=== PATIENT | female | born 1990 | race Caucasian/White ===

== ENCOUNTER 2016-10-05 17:05 | Emergency (ER) | payer OTHER ==
[~2016-10-05] VITALS: Ht 175.3 cm; Wt 105.1 kg
[2016-10-05 17:08] VITALS: TEMP 36.5; Ht 175.3 cm; Wt 105.1 kg
[2016-10-05] MEDS ORDERED: SODIUM CHLORIDE 0.9% 1000ML 1,000 ML IV STA (17:51)
[2016-10-05] MEDS ORDERED: SODIUM CHLORIDE 0.9% 500ML 500 ML IV STA (17:51)
--- NOTE | 2016-10-05 17:55 | EMERGENCY ROOM VISIT NOTE ---
History Report prepared by Jessica: Maude Vargas Under the Supervision of: Dr. Giana Mantilla M.D. First contact with patient: 17:40 Chief Complaint: ABDOMINAL PAIN Stated Complaint: NAUSEA, PAIN- ABDOMINAL REGION Nursing Triage Summary: Pt states "yesterday at 1500 I got pains in my lower abd. It feels like period cramps. I took aleve and the pain went away but it came back today at 1500. It is making me feel really nausous" Pt reports she is on her menstrual period currently History of Present Illness The patient is a 26 year old female who presents to the Emergency Room with complaints of persistent lower abdominal cramping that began yesterday. She notes that she began her menstrual period yesterday, which was a few days late. She recently finished her first cycle on a new control pill. Yesterday afternoon she developed the abdominal pain, which made her double over in pain. She took some Aleve which gave her significant relief throughout the rest of the day. This morning and through the early afternoon, she was feeling well. She developed the pain again about 3 hours ago, at the same time she had the pain yesterday. Since then she has also had 2 episodes of vomiting, most recently about an hour ago. The patient denies any unusual straining or lifting. She did have a stomach bug a few weeks ago, but her symptoms felt completely different. She denies diarrhea, urinary symptoms, or other complaints. Source of History: patient Onset: yesterday Position: abdomen (lower) Quality: cramping Timing: other (persistent) Associated Symptoms: + vomiting, No diarrhea, No urinary symptoms Review of Systems See HPI for pertinent positives & negatives. A total of 10 systems reviewed and were otherwise negative. Past Medical & Surgical Medical Problems: (1) Acute pancreatitis (2) Celiac disease Family History No pertinent family history stated. Social History Smoking Status: Never Smoker Marital Status: single Occupation Status: employed Current/Historical Medications Scheduled Control Pills ( Control Pills), 1 TAB PO DAILY Thyroid ([place] Thyroid), 45 MG PO DAILY Allergies Coded Allergies: No Known Allergies (Unverified , 10/05/16) Physical Exam Vital Signs Date Time Temp Pulse Resp B/P Pulse Ox O2 Delivery O2 Flow Rate FiO2 10/05/16 19:53 84 16 116/80 100 10/05/16 17:08 36.5 89 18 132/92 97 Room Air Physical Exam Vital signs reviewed. General: Well-appearing 26 year old female, in no significant distress. HEENT: No scleral icterus, PERRLA, neck supple. Atraumatic. Cardiovascular: Regular rate and rhythm, no extra sounds. Pulmonary: Clear to auscultation bilaterally, normal work of breathing. Abdomen: Soft, mild suprapubic abdominal tenderness, nondistended, positive bowel sounds. Musculoskeletal: Atraumatic, no peripheral edema. Neurologic: Patient awake alert and oriented x 3, full strength in all 4 extremities. Cranial nerves 2 through 12 grossly intact. Skin: Warm, dry, no rash Medical Decision & Procedures ER Provider Diagnostic Interpretation: Imaging results as stated below per my review and radiologist interpretation: EXAMINATION: PELVIC ULTRASOUND (transabdominal and endovaginal scanning) CLINICAL HISTORY: Pelvic pain. COMPARISON STUDY: None FINDINGS: The uterus measured 5.9 x 2.9 x 4 cm. The endometrial stripe measured 2 mm. The right ovary measured 31 x 18 x 31 mm. The left ovary measured 28 x 20 x 31 mm. There is no ultrasonographic evidence of ovarian torsion. It should be noted that ovarian torsion can be present with normal Doppler ultrasonographic findings. There is a small amount of free pelvic fluid. IMPRESSION: Small amount of free pelvic fluid. Ultrasonographically normal uterus and ovaries. Electronically signed by: Dago Mackey M.D. 10/05/2016 6:59 PM Dictated Date/Time: 10/05/2016 6:[address] ABD/PELVIS IV CONTRAST ONLY CLINICAL HISTORY: Lower abdominal pain. Elevated white count. Free pelvic fluid. COMPARISON STUDY: Pelvic ultrasound dated 10/05/2016 TECHNIQUE: Following the IV administration of 116 mL of Optiray-320, CT scan of the abdomen and pelvis was performed from the lung bases to the proximal femurs. Images are reviewed in the axial, sagittal, and coronal planes. IV contrast was administered without complication. CT DOSE: 953.40 mGy.cm FINDINGS: Lower chest: There are minor dependent atelectatic changes. Liver: The contrast-enhanced liver is normal in size, contour, and attenuation. There is no intrahepatic biliary ductal dilatation. The hepatic veins and portal veins are patent. Gallbladder: Unremarkable. Spleen: Normal in size and attenuation. Pancreas: Unremarkable. Adrenal glands: Unremarkable. Kidneys: There is symmetric renal cortical enhancement. The kidneys are normal in size without hydronephrosis. Bowel: There are no transition zones indicate bowel obstruction. The appendix appears normal. There is no acute diverticulitis. Peritoneum: There is a small amount of free pelvic fluid. No free air is visualized Vasculature: The abdominal aorta is normal in course and caliber. Adenopathy: None. Pelvic viscera: The bladder, and pelvic viscera are unremarkable. Skeletal structures: No destructive osseous lesions are seen. IMPRESSION: 1. Small amount of free pelvic fluid 2. No evidence of bowel obstruction. No evidence of free air 3. Normal appendix 4. No evidence of diverticulitis. Electronically signed by: Dago Mackey M.D. 10/05/2016 7:36 PM Dictated Date/Time: 10/05/2016 7:33 PM Laboratory Results 10/05/16 17:48 Red Blood Count 5.17, Mean Corpuscular Volume 85.3, Mean Corpuscular Hemoglobin 29.4, Mean Corpuscular Hemoglobin Concent 34.5, Mean Platelet Volume 10.9, Neutrophils (%) (Auto) 88.8, Lymphocytes (%) (Auto) 4.3, Monocytes (%) (Auto) 5.1, Eosinophils (%) (Auto) 1.4, Basophils (%) (Auto) 0.0, Neutrophils # (Auto) 20.47, Lymphocytes # (Auto) 0.99, Monocytes # (Auto) 1.17, Eosinophils # (Auto) 0.32, Basophils # (Auto) 0.01 10/05/16 17:48 Test 10/05/16 00:00 10/05/16 17:48 Urine Color DK YELLOW Urine Appearance CLEAR (CLEAR) Urine pH 6.5 (4.5-7.5) Urine Specific [place] 1.037 (1.000-1.030) Urine Protein NEG (NEG) Urine Glucose (UA) NEG (NEG) Urine Ketones 1+ (NEG) Urine Occult Blood 1+ (NEG) Urine Nitrite NEG (NEG) Urine Bilirubin NEG (NEG) Urine Urobilinogen NEG (NEG) Urine Leukocyte Esterase SMALL (NEG) Urine WBC (Auto) 5-10 /hpf (0-5) Urine RBC (Auto) 0-4 /hpf (0-4) Urine Hyaline Casts (Auto) 5-10 /lpf (0-5) Urine Epithelial Cells (Auto) >30 /lpf (0-5) Urine Bacteria (Auto) 1+ (NEG) Urine Renal Epithelial Cells /lpf (0-5) Urine Mucus PRESENT (NONE PRSENT) White Blood Count 23.05 K/uL (4.8-10.8) Red Blood Count 5.17 M/uL (4.2-5.4) Hemoglobin 15.2 g/dL (12.0-16.0) Hematocrit 44.1 % (37-47) Mean Corpuscular Volume 85.3 fL (80-100) Mean Corpuscular Hemoglobin 29.4 pg (25-34) Mean Corpuscular Hemoglobin Concent 34.5 g/dl (32-36) Platelet Count 374 K/uL (130-400) Mean Platelet Volume 10.9 fL (7.4-10.4) Neutrophils (%) (Auto) 88.8 % Lymphocytes (%) (Auto) 4.3 % Monocytes (%) (Auto) 5.1 % Eosinophils (%) (Auto) 1.4 % Basophils (%) (Auto) 0.0 % Neutrophils # (Auto) 20.47 K/uL (1.4-6.5) Lymphocytes # (Auto) 0.99 K/uL (1.2-3.4) Monocytes # (Auto) 1.17 K/uL (0.11-0.59) Eosinophils # (Auto) 0.32 K/uL (0-0.5) Basophils # (Auto) 0.01 K/uL (0-0.2) RDW Standard Deviation 41.4 fL (36.4-46.3) RDW Coefficient of Variation 13.3 % (11.5-14.5) Immature Granulocyte % (Auto) 0.4 % Immature Granulocyte # (Auto) 0.09 K/uL (0.00-0.02) Anion Gap 8.0 mmol/L (3-11) Est Creatinine Clear Calc Drug Dose 138.6 ml/min Estimated GFR () 119.9 Estimated GFR (Non- 103.5 BUN/Creatinine Ratio 15.5 (10-20) Calcium Level 9.2 mg/dl (8.5-10.1) Magnesium Level 1.9 mg/dl (1.8-2.4) Total Bilirubin 0.3 mg/dl (0.2-1) Direct Bilirubin < 0.1 mg/dl (0-0.2) Aspartate Amino Transf (AST/SGOT) 10 U/L (15-37) Alanine Aminotransferase (ALT/SGPT) 18 U/L (12-78) Alkaline Phosphatase 67 U/L (45-117) Total Protein 8.0 gm/dl (6.4-8.2) Albumin 4.0 gm/dl (3.4-5.0) Human Chorionic Gonadotropin, Qual NEG (NEG) Date/Time Source Procedure Growth Status 10/05/16 00:00 Urine , Clean Catch Urine Culture - Final Enterococcus Faecalis Lactobacillus Species Complete Laboratory results per my review. Medications Administered Medications (Trade) Dose Ordered Sig/Franck Route Start Time Stop Time Status Last Admin Dose Admin Sodium Chloride 500 ml @ 999 mls/hr Q31M STAT IV 10/05/16 17:51 10/05/16 18:21 DC 10/05/16 18:02 999 MLS/HR Sodium Chloride (Nss 1000ml) 1,000 ml @ 125 mls/hr Q8H STAT IV 10/05/16 17:51 10/05/16 20:45 DC 10/05/16 19:10 125 MLS/HR ED Course 1746: The patient was evaluated in room A10. A complete history and physical examination was performed. 1751: Ordered NSS 1000 ml @ 125 mls/hr IV, NSS 500 ml @ 999 mls/hr IV. 2158: Upon reevaluation, the patient was resting comfortably. I discussed findings with the patient. She verbalized agreement of the treatment plan. The patient was discharged home. Medical Decision Differential diagnosis: Etiologies such as appendicitis, diverticulitis, PUD, biliary pathology, UTI, pancreatitis, obstruction, mesenteric ischemia, aortic pathology, infections, inflammatory bowel disease, renal colic, as well as others were entertained. This pt was evaluated and appeared to be in no distress. IV access was obtained and lab work was drawn. Pt was hydrated with NSS, she declined pain medication. US of pelvis was performed and reveals FF in pelvis. Pt WBC is 23. A f/u CT abd/pelvis was performed and is negative for acute abnl. Pt was informed of the findings. Reevaluation reveals a non-acute abdomen. UA is likely contaminate, she denies urinary sx. Pt was asked to f/u closely with PCP and to return to the ED for worsening of symptoms or any medical concerns. Impression Primary Impression: Leukocytosis Additional Impression: Lower abdominal pain Scribe Attestation The scribe's documentation has been prepared under my direction and personally reviewed by me in its entirety. I confirm that the note above accurately reflects all work, treatment, procedures, and medical decision making performed by me. Departure Information Dispostion Home / Self-Care Referrals No Doctor, Assigned (PCP) Patient Instructions My [facility] Additional Instructions Diagnosis: Leukocytosis, lower abdominal pain Ibuprofen 600 mg every 6 hours as needed for pain with food. Drink plenty of clear fluids. Follow-up with your physician this week for reevaluation. Return to the ER for worsening of symptoms, fever or any medical concerns. Problem Qualifiers Primary Impression: Leukocytosis Leukocytosis type: unspecified Qualified Codes: D72.829 - Elevated white blood cell count, unspecified
[2016-10-05 18:17] LABS: HEMATOCRIT 44.1 % (37-47); MEAN CELL VOLUME 85.3 fL (80-100); MEAN CORPUSCULAR HEMOGLOBIN 29.4 pg (25-34); MEAN CORPUSCULAR HGB CONC 34.5 g/dl (32-36); MEAN PLATELET VOLUME 10.9 fL (7.4-10.4); PLATELET COUNT 374 K/uL (130-400); RED BLOOD COUNT 5.17 M/uL (4.2-5.4); WHITE BLOOD COUNT 23.05 K/uL (4.8-10.8)
[2016-10-05 18:22] LABS: URINE APPEARANCE CLEAR (CLEAR); URINE BILIRUBIN NEG (NEG); URINE COLOR DK YELLOW; URINE EPITHELIAL CELL AUTO >30 /lpf (0-5); URINE NITRITE NEG (NEG); URINE PH 6.5 (4.5-7.5); URINE SPECIFIC GRAVITY 1.037 (1.000-1.030); UROBILINOGEN NEG (NEG); ZZUR CULT IF INDIC CLEAN CATCH YES
[2016-10-05 18:30] LABS: MANUAL MICROSCOPIC REQUIRED? NO; REVIEW REQ? YES
[2016-10-05 18:35] LABS: ALT/SGPT 18 U/L (12-78); AST/SGOT 10 U/L (15-37); BLOOD UREA NITROGEN 12 mg/dl (7-18); BUN/CREATININE RATIO 15.5 (10-20); CALCIUM 9.2 mg/dl (8.5-10.1); CARBON DIOXIDE 26 mmol/L (21-32); CHLORIDE 107 mmol/L (98-107); CREATININE 0.78 mg/dl (0.60-1.20); GLUCOSE 100 mg/dl (70-99); MAGNESIUM 1.9 mg/dl (1.8-2.4); POTASSIUM 3.8 mmol/L (3.5-5.1); SODIUM 141 mmol/L (136-145)
[2016-10-05 18:38] LABS: ALKALINE PHOSPHATASE 67 U/L (45-117)
[2016-10-05 18:39] LABS: PREG INTERNAL NEGATIVE QC NEG CLEAR BACKGROUND; PREG INTERNAL POSITIVE QC POS CONTROL LINE
[2016-10-05 18:43] LABS: URINE MUCUS PRESENT (NONE PRSENT)
[2016-10-05 18:45] LABS: BASO ABS # 0.01 K/uL (0-0.2); COMPLETE YES; EOS % 1.4 %; IG% 0.4 %; LYMPH % 4.3 %; LYMPH ABS # 0.99 K/uL (1.2-3.4); MONO % 5.1 %; NEUT % 88.8 %
--- NOTE | 2016-10-05 19:02 | DIAGNOSTIC IMAGING REPORT ---
EXAMINATION: PELVIC ULTRASOUND (transabdominal and endovaginal scanning) CLINICAL HISTORY: Pelvic pain. COMPARISON STUDY: None FINDINGS: The uterus measured 5.9 x 2.9 x 4 cm. The endometrial stripe measured 2 mm. The right ovary measured 31 x 18 x 31 mm. The left ovary measured 28 x 20 x 31 mm. There is no ultrasonographic evidence of ovarian torsion. It should be noted that ovarian torsion can be present with normal Doppler ultrasonographic findings. There is a small amount of free pelvic fluid. IMPRESSION: Small amount of free pelvic fluid. Ultrasonographically normal uterus and ovaries. Electronically signed by: Dago Mackey M.D. 10/05/2016 6:59 PM Dictated Date/Time: 10/05/2016 6:58 PM
[2016-10-05] MEDS ORDERED: OPTIRAY 320 IV PRN (19:15)
[2016-10-05] MEDS ORDERED: NATURAL SUPPLEMENTS PO (19:29)
--- NOTE | 2016-10-05 19:38 | DIAGNOSTIC IMAGING REPORT ---
CT ABD/PELVIS IV CONTRAST ONLY CLINICAL HISTORY: Lower abdominal pain. Elevated white count. Free pelvic fluid. COMPARISON STUDY: Pelvic ultrasound dated 10/05/2016 TECHNIQUE: Following the IV administration of 116 mL of Optiray-320, CT scan of the abdomen and pelvis was performed from the lung bases to the proximal femurs. Images are reviewed in the axial, sagittal, and coronal planes. IV contrast was administered without complication. CT DOSE: 953.40 mGy.cm FINDINGS: Lower chest: There are minor dependent atelectatic changes. Liver: The contrast-enhanced liver is normal in size, contour, and attenuation. There is no intrahepatic biliary ductal dilatation. The hepatic veins and portal veins are patent. Gallbladder: Unremarkable. Spleen: Normal in size and attenuation. Pancreas: Unremarkable. Adrenal glands: Unremarkable. Kidneys: There is symmetric renal cortical enhancement. The kidneys are normal in size without hydronephrosis. Bowel: There are no transition zones indicate bowel obstruction. The appendix appears normal. There is no acute diverticulitis. Peritoneum: There is a small amount of free pelvic fluid. No free air is visualized Vasculature: The abdominal aorta is normal in course and caliber. Adenopathy: None. Pelvic viscera: The bladder, and pelvic viscera are unremarkable. Skeletal structures: No destructive osseous lesions are seen. IMPRESSION: 1. Small amount of free pelvic fluid 2. No evidence of bowel obstruction. No evidence of free air 3. Normal appendix 4. No evidence of diverticulitis. Electronically signed by: Dago Mackey M.D. 10/05/2016 7:36 PM Dictated Date/Time: 10/05/2016 7:33 PM
[2016-10-05 19:53] VITALS: BP 116/80; PULSE 84; O2SAT 100
[2016-10-11] MEDS ORDERED: ONDA4TAB65 PO (10:13)
== END 2016-10-05 20:09 | disposition home or self-care (01) ==
LOC: C.EDB 17:06 → C.EDC 20:09
DX: D72.829 Elevated white blood cell count, unspecified (principal); R10.30 Lower abdominal pain, unspecified; K90.0 Celiac disease; K85.90 Acute pancreatitis without necrosis or infection, unspecified; Z79.3 Long term (current) use of hormonal contraceptives; Z79.899 Other long term (current) drug therapy

== ENCOUNTER 2016-10-08 12:49 | Inpatient (IN) | payer OTHER ==
[~2016-10-08] VITALS: Ht 175.3 cm; Wt 105.8 kg
[~2016-10-08 12:49] MED LIST: NATURAL SUPPLEMENTS PO
[2016-10-08] MEDS ORDERED: KETOROLAC TROMETHAMINE 30 MG/ML VIAL IV STA (13:38)
[2016-10-08] MEDS ORDERED: ONDANSETRON 8 MG/54 ML D5W IV STA (13:38)
[2016-10-08] MEDS ORDERED: SODIUM CHLORIDE 0.9% 1000ML 2,000 ML IV STA (13:38)
--- NOTE | 2016-10-08 13:46 | EMERGENCY ROOM VISIT NOTE ---
History Report prepared by Jessica: Mary Jimenez Under the Supervision of: Dr. Albaro Beach M.D. First contact with patient: 13:33 Chief Complaint: ABDOMINAL PAIN Stated Complaint: ABD PAIN, CRAMPS, VOMITING Nursing Triage Summary: Triage note: Pt reports she was seen in ED on Saturday for possible ovarian cyst. pt reports continued abd pain and nausea. pt reports diarrhea which is on going since saturday. History of Present Illness The patient is a 26 year old female who presents to the Emergency Room with complaints of diffuse intermittent abdominal pain that began . She currently rates her discomfort as a 4/10, but notes that it has been up to an 8/ 10 in severity. The patient states that she was evaluated in the emergency department for central abdominal pain. She states that she was told that she probably had an ovarian cyst that had ruptured. The patient states that her pain has been intermittent since and describes her pain today as a cramping. She states that she has had persistent diarrhea since Saturday and additionally notes intermittent nausea. The patient states that she has been vomiting today. She states that today she has felt bloated and sore in her abdominal area. The patient states that she has been feeling weak and fatigued while at work. She denies any fever, urinary symptoms, or vaginal discharge. The patient states that she did have her menstrual cycle last week. She denies any chance of . The patient denies being around anyone with similar symptoms. Per the notes from the patient's visit on Saturday, the patient[place] blood [place] [id number] scan showed a normal appendix and her ultrasound showed healthy ovaries, but a small amount of free fluid. Her test was negative. Source of History: patient Onset: Position: abdomen (diffuse) Symptom Intensity: 4/10 Quality: cramping, other (sore, bloated) Timing: intermittent Associated Symptoms: + diarrhea, + fatigue, + nausea, + vomiting, + weakness , No fevers, No urinary symptoms Review of Systems See HPI for pertinent positives & negatives. A total of 10 systems reviewed and were otherwise negative. Past Medical & Surgical Medical Problems: (1) Acute pancreatitis (2) Celiac disease Family History No pertinent family history stated. Social History Smoking Status: Never Smoker Marital Status: single Occupation Status: employed Current/Historical Medications Scheduled Control Pills ( Control Pills), 1 TAB PO DAILY Thyroid ([place] Thyroid), 45 MG PO DAILY Allergies Coded Allergies: No Known Allergies (Unverified , 10/05/16) Physical Exam Vital Signs Date Time Temp Pulse Resp B/P Pulse Ox O2 Delivery O2 Flow Rate FiO2 10/08/16 14:48 70 18 116/74 100 Room Air 10/08/16 12:55 36.8 83 18 129/92 97 Room Air Physical Exam GENERAL: Patient is in no acute distress. HEENT: No acute trauma, normocephalic atraumatic, mucous membranes moist, no nasal congestion, no scleral icterus. NECK: No stridor, no adenopathy, no meningismus, trachea is midline. LUNGS: Clear to auscultation bilaterally, no wheeze, no rhonchi, breath sounds equal. HEART: Without murmurs gallops or rubs, regular rate and rhythm. ABDOMEN: Mildly tender in both lower quadrants. Soft, bowel sounds positive, no hernias, no peritonitis. EXTREMITIES: No cyanosis or edema, full range of motion of all the joints without pain or difficulty, no signs for acute trauma. NEUROLOGIC: Oriented x 3, no acute motor or sensory deficits, no focal weakness. SKIN: No rash, no jaundice, no diaphoresis. Medical Decision & Procedures ER Provider Diagnostic Interpretation: X ray results and stated below per my interpretation and radiologist interpretation. Other radiology results and stated below per my review and radiologist interpretation: ABDOMEN 2VIEW W/PA CHEST RTN CLINICAL HISTORY: Dominant pain, nausea, vomiting, diarrhea. COMPARISON STUDY: No previous studies for comparison. FINDINGS: The erect chest reveals no evidence of free air. There is no evidence of focal pulmonary consolidation.] Erect and supine views of the abdomen reveal no abnormally dilated loops of large or small bowel. There are no transition zone to indicate bowel obstruction. IMPRESSION: No evidence of bowel obstruction. No evidence of free air. Electronically signed by: Dago Mackey M.D. 10/08/2016 2:48 PM Dictated Date/Time: 10/08/2016 2:48 PM ABDOMINAL ULTRASOUND, RIGHT UPPER QUADRANT HISTORY: Epigastric pain.. COMPARISON: CT of the abdomen and pelvis October 05, 2016. FINDINGS: Liver morphology is normal. The study is compromised by suboptimal penetration. There is no biliary ductal dilatation and no gallstones are identified. The pancreatic body is normal. The head and tail are obscured. There is no right hydronephrosis. IMPRESSION: 1. No gallstones or biliary ductal dilatation. 2. Study compromised suboptimal penetration. Electronically signed by: Frank Matta M.D. 10/08/2016 3:34 PM Dictated Date/Time: 10/08/2016 3:32 PM Laboratory Results 10/08/16 13:35 Red Blood Count 4.60, Mean Corpuscular Volume 84.8, Mean Corpuscular Hemoglobin 29.1, Mean Corpuscular Hemoglobin Concent 34.4, Mean Platelet Volume 10.5, Neutrophils (%) (Auto) 80.3, Lymphocytes (%) (Auto) 9.9, Monocytes (%) (Auto) 4.5, Eosinophils (%) (Auto) 4.9, Basophils (%) (Auto) 0.2, Neutrophils # (Auto) 10.06, Lymphocytes # (Auto) 1.24, Monocytes # (Auto) 0.57, Eosinophils # (Auto) 0.61, Basophils # (Auto) 0.03 10/08/16 13:35 Test 10/08/16 11:25 10/08/16 13:35 Urine Color YELLOW Urine Appearance CLEAR (CLEAR) Urine pH 6.0 (4.5-7.5) Urine Specific [place] 1.021 (1.000-1.030) Urine Protein NEG (NEG) Urine Glucose (UA) NEG (NEG) Urine Ketones NEG (NEG) Urine Occult Blood NEG (NEG) Urine Nitrite NEG (NEG) Urine Bilirubin NEG (NEG) Urine Urobilinogen NEG (NEG) Urine Leukocyte Esterase TRACE (NEG) Urine WBC (Auto) 1-5 /hpf (0-5) Urine RBC (Auto) 0-4 /hpf (0-4) Urine Hyaline Casts (Auto) 5-10 /lpf (0-5) Urine Epithelial Cells (Auto) >30 /lpf (0-5) Urine Bacteria (Auto) NEG (NEG) White Blood Count 12.54 K/uL (4.8-10.8) Red Blood Count 4.60 M/uL (4.2-5.4) Hemoglobin 13.4 g/dL (12.0-16.0) Hematocrit 39.0 % (37-47) Mean Corpuscular Volume 84.8 fL (80-100) Mean Corpuscular Hemoglobin 29.1 pg (25-34) Mean Corpuscular Hemoglobin Concent 34.4 g/dl (32-36) Platelet Count 304 K/uL (130-400) Mean Platelet Volume 10.5 fL (7.4-10.4) Neutrophils (%) (Auto) 80.3 % Lymphocytes (%) (Auto) 9.9 % Monocytes (%) (Auto) 4.5 % Eosinophils (%) (Auto) 4.9 % Basophils (%) (Auto) 0.2 % Neutrophils # (Auto) 10.06 K/uL (1.4-6.5) Lymphocytes # (Auto) 1.24 K/uL (1.2-3.4) Monocytes # (Auto) 0.57 K/uL (0.11-0.59) Eosinophils # (Auto) 0.61 K/uL (0-0.5) Basophils # (Auto) 0.03 K/uL (0-0.2) RDW Standard Deviation 41.0 fL (36.4-46.3) RDW Coefficient of Variation 13.3 % (11.5-14.5) Immature Granulocyte % (Auto) 0.2 % Immature Granulocyte # (Auto) 0.03 K/uL (0.00-0.02) Anion Gap 11.0 mmol/L (3-11) Est Creatinine Clear Calc Drug Dose 164.6 ml/min Estimated GFR () 139.3 Estimated GFR (Non- 120.2 BUN/Creatinine Ratio 11.2 (10-20) Calcium Level 8.6 mg/dl (8.5-10.1) Total Bilirubin 0.1 mg/dl (0.2-1) Aspartate Amino Transf (AST/SGOT) 10 U/L (15-37) Alanine Aminotransferase (ALT/SGPT) 14 U/L (12-78) Alkaline Phosphatase 59 U/L (45-117) Total Protein 6.9 gm/dl (6.4-8.2) Albumin 3.4 gm/dl (3.4-5.0) Globulin 3.5 gm/dl (2.5-4.0) Albumin/Globulin Ratio 1.0 (0.9-2) Triglycerides Level 106 mg/dl (0-150) Cholesterol Level 188 mg/dl (0-200) HDL Cholesterol 61 mg/dl LDL Cholesterol, Calculated 106 mg/dl VLDL Cholesterol, Calculated 21 mg/dl Cholesterol/HDL Ratio 3.1 Lipase 6334 U/L (73-393) Laboratory results reviewed by me. Medications Administered Medications (Trade) Dose Ordered Sig/Franck Route Start Time Stop Time Status Last Admin Dose Admin Sodium Chloride (Nss 1000ml) 2,000 ml @ 999 mls/hr Q2H1M STAT IV 10/08/16 13:38 10/08/16 15:38 DC 10/08/16 13:38 999 MLS/HR Ondansetron HCl (Zofran 8mg Iv) 8 mg NOW STAT IV 10/08/16 13:38 10/08/16 13:40 DC 10/08/16 13:46 8 MG Ketorolac Tromethamine (Toradol Inj) 30 mg NOW STAT IV 10/08/16 13:38 10/08/16 13:40 DC 10/08/16 13:46 30 MG ED Course 1334: The patient was evaluated in room B5. A complete history and physical exam was performed. 1338: Ordered Toradol Inj 30 mg IV, Zofran 8 mg IV, Sodium Chloride 2000 ml @ 999 mls/hr IV. 1445: I reevaluated the patient and she is resting comfortably. I discussed the exam findings with her and I discussed the treatment plan. She verbalized complete understanding and agreement. She will be evaluated for further treatment. 1455: I discussed the patients case with Dr. Escobar [facility]. He is going to evaluate the patient for further treatment. Medical Decision The patient is a 26 year old female who presents to the ED with complaints of abdominal pain. Differential diagnoses considered include Dehydration, electrolyte imbalance, anemia, viral illness, ovarian cyst, appendicitis, acute cholecystitis or pancreatitis. There is a mild leukocytosis at 12,000, this is markedly improved from a few days ago when the number was 23,000. No concerning anemia. No significant electrolyte abnormality, kidney failure or hepatitis. A pancreatitis was present with a lipase value of over 6000. Obstruction series shows no bowel obstruction, free air or pneumonia. Gallbladder ultrasound did not show acute cholecystitis or gallstones. Urinalysis does not show evidence for infection. On exam, the patient was not toxic or febrile. The patient received IV saline, IV Zofran and IV Toradol, she is resting comfortably. Given the findings of pancreatitis, bowel rest, admissions/observation to this hospital was recommended. I spoke to the patient and case management. The on- call hospitalist was consulted. Consults Time Called: 1449 Consulting Physician: SARAH Pepe Returned Call: [phone] I discussed the patients case with SARAH Pepe. He is going to evaluate the patient for further treatment. Impression Primary Impression: Acute pancreatitis Additional Impression: Vomiting and diarrhea Scribe Attestation The scribe's documentation has been prepared under my direction and personally reviewed by me in its entirety. I confirm that the note above accurately reflects all work, treatment, procedures, and medical decision making performed by me. Departure Information Dispostion Being Evaluated By Hospitalist Referrals No Doctor, Assigned (PCP) Problem Qualifiers
[2016-10-08 13:47] LABS: BASO % 0.2 %; BASO ABS # 0.03 K/uL (0-0.2); COMPLETE YES; EOS % 4.9 %; IG% 0.2 %; LYMPH % 9.9 %; LYMPH ABS # 1.24 K/uL (1.2-3.4); MEAN CELL VOLUME 84.8 fL (80-100); MEAN CORPUSCULAR HEMOGLOBIN 29.1 pg (25-34); MEAN CORPUSCULAR HGB CONC 34.4 g/dl (32-36); MEAN PLATELET VOLUME 10.5 fL (7.4-10.4); MONO % 4.5 %; NEUT % 80.3 %; PLATELET COUNT 304 K/uL (130-400); WHITE BLOOD COUNT 12.54 K/uL (4.8-10.8)
[2016-10-08 14:06] LABS: BUN/CREATININE RATIO 11.2 (10-20); CALCIUM 8.6 mg/dl (8.5-10.1); CREATININE 0.66 mg/dl (0.60-1.20); POTASSIUM 3.9 mmol/L (3.5-5.1)
[2016-10-08 14:07] LABS: URINE APPEARANCE CLEAR (CLEAR); URINE BILIRUBIN NEG (NEG); URINE COLOR YELLOW; URINE EPITHELIAL CELL AUTO >30 /lpf (0-5); URINE NITRITE NEG (NEG); URINE SPECIFIC GRAVITY 1.021 (1.000-1.030); UROBILINOGEN NEG (NEG); ZZUR CULT IF INDIC CLEAN CATCH NO
[2016-10-08 14:08] LABS: MANUAL MICROSCOPIC REQUIRED? NO; REVIEW REQ? NO
--- NOTE | 2016-10-08 14:50 | DIAGNOSTIC IMAGING REPORT ---
ABDOMEN 2VIEW W/PA CHEST RTN CLINICAL HISTORY: Dominant pain, nausea, vomiting, diarrhea. COMPARISON STUDY: No previous studies for comparison. FINDINGS: The erect chest reveals no evidence of free air. There is no evidence of focal pulmonary consolidation.] Erect and supine views of the abdomen reveal no abnormally dilated loops of large or small bowel. There are no transition zone to indicate bowel obstruction. IMPRESSION: No evidence of bowel obstruction. No evidence of free air. Electronically signed by: Dago Mackey M.D. 10/08/2016 2:48 PM Dictated Date/Time: 10/08/2016 2:48 PM
[2016-10-08] MEDS ORDERED: ONDANSETRON INJ 2 MG/ML 2 ML VIAL IV PRN (15:15)
[2016-10-08] MEDS ORDERED: KETOROLAC TROMETHAMINE 30 MG/ML VIAL IV PRN (15:15)
[2016-10-08] MEDS ORDERED: ACETAMINOPHEN 325 MG TAB PO PRN (15:15)
--- NOTE | 2016-10-08 15:36 | DIAGNOSTIC IMAGING REPORT ---
ABDOMINAL ULTRASOUND, RIGHT UPPER QUADRANT HISTORY: Epigastric pain.. COMPARISON: CT of the abdomen and pelvis October 05, 2016. FINDINGS: Liver morphology is normal. The study is compromised by suboptimal penetration. There is no biliary ductal dilatation and no gallstones are identified. The pancreatic body is normal. The head and tail are obscured. There is no right hydronephrosis. IMPRESSION: 1. No gallstones or biliary ductal dilatation. 2. Study compromised suboptimal penetration. Electronically signed by: Frank Matta M.D. 10/08/2016 3:34 PM Dictated Date/Time: 10/08/2016 3:32 PM
[2016-10-08 16:04] LABS: CHOLESTEROL/HDL RATIO 3.1
--- NOTE | 2016-10-08 16:09 | History and Physical ---
History & Physical Date & Time of Service: Oct 08, 2016 at 15:53 Chief Complaint: Abd Pain, Cramps, Vomiting Primary Care Physician: Elpidio Fernández M.D. History of Present Illness Source: patient, family, hospital records 26 yo female with past history of hypothyroidism, presented to the ED for the second time in the past 5 days for epigastric pain, nausea/vomiting and loose stools. The patient's symptoms started on (5 days ago). No one else with similar symptoms. She had a 48 hour bout of gastroenteritis about a month ago but otherwise she has normal bowel movements, never has issues with nausea. The symptoms started with the epigastric pain, became very severe over the weekend and she came to the ED. In the ED her WBC was 23k and a CT scan of the abdomen and pelvis was essentially normal, no pancreatitis, no appendicitis, no diverticulitis. She was sent home with a diagnosis of enteritis. She returned today with persistent epigastric pain, decreases appetite, nausea. She admits that she is vomiting less. Her stools are still loose. No fever. The pain is mild to moderate and was completely relieved with one dose of Toradol in the ED. She says that she is thirsty but not hungry. Her lipase was 6000 in the ED. RUQ ultrasound did not show gall stones or dilated biliary ducts. Pancreas was normal. Past Medical/Surgical History Hypothyroidism Medical Problems: (1) Celiac disease Status: Chronic Family History family history discussed, no history of malignancies, states that her family is healthy to her knowledge Social History Smoking Status: Never Smoker Marital Status: single Occupational Status: employed Allergies Coded Allergies: No Known Allergies (Unverified , 10/05/16) Home Medications Scheduled Control Pills ( Control Pills), 1 TAB PO DAILY Thyroid ([place] Thyroid), 45 MG PO DAILY Review of Systems Constitutional: + fatigue, + weakness, No chills, No fever, No problem reported , No sweats, No weight loss Eyes: No diplopia, No discharge, No eye pain, No problem reported, No redness, No worsening of vision ENT: No dental problems, No hearing loss, No nasal symptoms, No problem reported, No sore throat, No tinnitus, No trouble swallowing, No unusual epistaxis Respiratory: No cough, No dyspnea at rest, No dyspnea on exertion, No hemoptysis, No problem reported, No shortness of breath, No sputum, No wheezing Cardiovascular: No PND, No chest pain, No claudication, No edema, No orthopnea , No palpitations, No problem reported Abdomen: + diarrhea, + nausea, + pain (epigastric), + vomiting, No GI bleeding , No constipation Musculoskeletal: No calf pain, No joint pain, No muscle pain, No problem reported, No swelling Genitourinary - Female: No dysuria, No hematuria, No urinary frequency, No urinary incontinence, No urinary retention, No urinary urgency Neurologic: No balance problems, No memory loss, No numbness/tingling, No paralysis, No problem reported, No vertigo, No weakness Psychiatric: No anhedonism, No anxiety, No depression symptoms, No insomnia, No problem reported, No substance abuse Endocrine: No excessive thirst, No excessive urination, No fatigue, No problem reported Hematologic / Lymphatic: No abnormal bleeding/bruising, No clotting problems, No night sweats, No problem reported, No swollen lymph nodes Integumentary: No bleeding, No color change, No itch, No new/changing skin lesions, No problem reported, No rash Allergic / Immunologic: No environmental allergies, No food allergies, No frequent infections, No hives, No pet sensitivities, No poor healing, No problem reported, No prolonged convalescence, No seasonal allergies Physical Exam Vital Signs Date Time Temp Pulse Resp B/P Pulse Ox O2 Delivery O2 Flow Rate FiO2 10/08/16 14:48 70 18 116/74 100 Room Air 10/08/16 12:55 36.8 83 18 129/92 97 Room Air General Appearance: WD/WN, no apparent distress Head: normocephalic, atraumatic Eyes: normal inspection, EOMI, sclerae normal ENT: normal ENT inspection, hearing grossly normal, pharynx normal Neck: supple, no adenopathy, no JVD, trachea midline Respiratory/Chest: chest non-tender, lungs clear, normal breath sounds, no respiratory distress, no accessory muscle use Cardiovascular: regular rate, rhythm, no edema, no gallop, no JVD, no murmur, normal peripheral pulses Abdomen/GI: normal bowel sounds, soft, no organomegaly, + tenderness ( epigastric, deep palpation, no rigidity or rebound, negative Mayito's sign) Back: normal inspection, no CVA tenderness, no muscle spasm, normal range of motion Extremities/Musculoskelatal: normal inspection, no calf tenderness, normal capillary refill, no pedal edema, normal range of motion, pelvis stable 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, no motor/sensory deficits, alert, normal mood/affect, normal reflexes, oriented x 3 Skin: normal color, warm/dry, no rash Lymphatic: no adenopathy Diagnostics Laboratory Results Results Past 24 Hours Test 10/08/16 11:25 10/08/16 13:35 Range/Units Urine Color YELLOW Urine Appearance CLEAR CLEAR Urine pH 6.0 4.5-7.5 Urine Specific [place] 1.021 1.000-1.030 Urine Protein NEG NEG Urine Glucose (UA) NEG NEG Urine Ketones NEG NEG Urine Occult Blood NEG NEG Urine Nitrite NEG NEG Urine Bilirubin NEG NEG Urine Urobilinogen NEG NEG Urine Leukocyte Esterase TRACE NEG Urine WBC (Auto) 1-5 0-5 /hpf Urine RBC (Auto) 0-4 0-4 /hpf Urine Hyaline Casts (Auto) 5-10 0-5 /lpf Urine Epithelial Cells (Auto) >30 0-5 /lpf Urine Bacteria (Auto) NEG NEG White Blood Count 12.54 4.8-10.8 K/uL Red Blood Count 4.60 4.2-5.4 M/uL Hemoglobin 13.4 12.0-16.0 g/dL Hematocrit 39.0 37-47 % Mean Corpuscular Volume 84.8 80-100 fL Mean Corpuscular Hemoglobin 29.1 25-34 pg Mean Corpuscular Hemoglobin Concent 34.4 32-36 g/dl Platelet Count 304 130-400 K/uL Mean Platelet Volume 10.5 7.4-10.4 fL Neutrophils (%) (Auto) 80.3 % Lymphocytes (%) (Auto) 9.9 % Monocytes (%) (Auto) 4.5 % Eosinophils (%) (Auto) 4.9 % Basophils (%) (Auto) 0.2 % Neutrophils # (Auto) 10.06 1.4-6.5 K/uL Lymphocytes # (Auto) 1.24 1.2-3.4 K/uL Monocytes # (Auto) 0.57 0.11-0.59 K/uL Eosinophils # (Auto) 0.61 0-0.5 K/uL Basophils # (Auto) 0.03 0-0.2 K/uL RDW Standard Deviation 41.0 36.4-46.3 fL RDW Coefficient of Variation 13.3 11.5-14.5 % Immature Granulocyte % (Auto) 0.2 % Immature Granulocyte # (Auto) 0.03 0.00-0.02 K/uL Sodium Level 142 136-145 mmol/L Potassium Level 3.9 3.5-5.1 mmol/L Chloride Level 109 98-107 mmol/L Carbon Dioxide Level 22 21-32 mmol/L Anion Gap 11.0 3-11 mmol/L Blood Urea Nitrogen 7 7-18 mg/dl Creatinine 0.66 0.60-1.20 mg/dl Est Creatinine Clear Calc Drug Dose 164.6 ml/min Estimated GFR () 139.3 Estimated GFR (Non- 120.2 BUN/Creatinine Ratio 11.2 10-20 Random Glucose 105 70-99 mg/dl Calcium Level 8.6 8.5-10.1 mg/dl Total Bilirubin 0.1 0.2-1 mg/dl Aspartate Amino Transf (AST/SGOT) 10 15-37 U/L Alanine Aminotransferase (ALT/SGPT) 14 12-78 U/L Alkaline Phosphatase 59 45-117 U/L Total Protein 6.9 6.4-8.2 gm/dl Albumin 3.4 3.4-5.0 gm/dl Globulin 3.5 2.5-4.0 gm/dl Albumin/Globulin Ratio 1.0 0.9-2 Lipase 6334 73-393 U/L Diagnostic Radiology Abdominal US: no gall stones, normal CBD, normal head of pancreas Impression Assessment and Plan 26 yo female with elevated lipase, possible acute pancreatitis - Acute pancreatitis: 5 days of epigastric pain, N/V, diarrhea that is slowly getting better but definitely not resolved Lipase elevated at 6000, certainly extended N/V could cause it to rise but doubt it would go that high with just N/V normal pancreas on CT on 10/05 and appeared normal on abdominal US today normal LFT, although WBC is slightly up at 12, coming down from 23k on 10/05 plan will be to admit to medical floor, NSS at 200cc/hr, Toradol for pain, allow clear liquids repeat labs in the AM, check lipid profile to rule out hypertriglyceridemia if feeling better tomorrow would advance diet, possible discharge tomorrow afternoon if everything improving dramatically no definitive cause for pancreatitis at this time Level of Care Med/Surg Resuscitation Status FULL RESUSCITATION VTE Prophylaxis VTE Risk Assessment Done? Y/N: Yes Risk Level: Low Given or contraindicated: Treatment not indicated Additional Copies To Elpidio Fernández M.D.
[2016-10-08] MEDS: SODIUM CHLORIDE 0.9% 1000ML 1,000 ML IV SCH ×2 (17:17→21:42)
[2016-10-08] MEDS ORDERED: THYR15TA PO (19:29)
[2016-10-08] MEDS ORDERED: BCPILLS PO (19:29)
[2016-10-08 20:16] VITALS: BP 110/70; PULSE 68; TEMP 36.9; O2SAT 98; Ht 175.3 cm; Wt 105.8 kg
[2016-10-08 23:55] VITALS: BP 118/72; PULSE 80; TEMP 36.9; O2SAT 100
[2016-10-09] MEDS: SODIUM CHLORIDE 0.9% 1000ML 1,000 ML IV SCH ×2 (02:35→07:35)
[2016-10-09] MEDS: ARMOUR THYROID 30 MG TAB PO SCH (06:32)
[2016-10-09 06:44] LABS: BASO % 0.3 %; BASO ABS # 0.03 K/uL (0-0.2); COMPLETE YES; EOS % 6.7 %; HEMATOCRIT 34.2 % (37-47); IG% 0.2 %; LYMPH % 24.5 %; LYMPH ABS # 2.48 K/uL (1.2-3.4); MEAN CELL VOLUME 85.5 fL (80-100); MEAN CORPUSCULAR HEMOGLOBIN 28.3 pg (25-34); MEAN PLATELET VOLUME 10.6 fL (7.4-10.4); MONO % 5.4 %; NEUT % 62.9 %; PLATELET COUNT 249 K/uL (130-400); WHITE BLOOD COUNT 10.12 K/uL (4.8-10.8)
[2016-10-09 07:13] LABS: ALKALINE PHOSPHATASE 50 U/L (45-117); ALT/SGPT 15 U/L (12-78); AST/SGOT 7 U/L (15-37); BLOOD UREA NITROGEN 5 mg/dl (7-18); BUN/CREATININE RATIO 7.6 (10-20); CALCIUM 7.8 mg/dl (8.5-10.1); CARBON DIOXIDE 24 mmol/L (21-32); CHLORIDE 114 mmol/L (98-107); CREATININE 0.62 mg/dl (0.60-1.20); GLUCOSE 86 mg/dl (70-99); MAGNESIUM 1.8 mg/dl (1.8-2.4); POTASSIUM 3.3 mmol/L (3.5-5.1); SODIUM 146 mmol/L (136-145)
--- NOTE | 2016-10-09 07:24 | Progress Note ---
Subjective Date of Service: Oct 09, 2016. Subjective pt is still with nausea and did not tolerate lunch well at full liquids requests to down grade diet again, pain is low for typical pancreas pain Problem List Medical Problems: (1) Leukocytosis Status: Acute (2) Lower abdominal pain Status: Acute (3) Vomiting and diarrhea Status: Acute Review of Systems Constitutional: No chills, No fever, No weakness Respiratory: No cough, No shortness of breath Cardiac: No chest pain, No edema Abdomen: + nausea, + pain, No constipation, No diarrhea, No vomiting Musculoskeletal: No joint pain, No muscle pain Psychiatric: No anhedonism, No depression symptoms Objective Vital Signs Date Time Temp Pulse Resp B/P Pulse Ox O2 Delivery O2 Flow Rate FiO2 10/09/16 00:00 Room Air 10/08/16 23:55 36.9 80 18 118/72 100 Room Air 10/08/16 20:16 36.9 68 16 110/70 98 Room Air 10/08/16 20:00 Room Air 10/08/16 16:04 66 12 114/70 99 10/08/16 14:48 70 18 116/74 100 Room Air 10/08/16 12:55 36.8 83 18 129/92 97 Room Air Physical Exam General Appearance: WD/WN, + mild distress ENT: normal ENT inspection, pharynx normal Neck: supple, no JVD Respiratory/Chest: chest non-tender, lungs clear, normal breath sounds Cardiovascular: regular rate, rhythm, no murmur Abdomen: normal bowel sounds, + guarding, + tenderness Extremities: no pedal edema, no calf tenderness Neurologic/Psychiatric: alert, oriented x 3 Laboratory Results Last 24 Hours Test 10/08/16 11:25 10/08/16 13:35 10/09/16 06:15 Urine Color YELLOW Urine Appearance CLEAR Urine pH 6.0 Urine Specific [place] 1.021 Urine Protein NEG Urine Glucose (UA) NEG Urine Ketones NEG Urine Occult Blood NEG Urine Nitrite NEG Urine Bilirubin NEG Urine Urobilinogen NEG Urine Leukocyte Esterase TRACE Urine WBC (Auto) 1-5 /hpf Urine RBC (Auto) 0-4 /hpf Urine Hyaline Casts (Auto) 5-10 /lpf Urine Epithelial Cells (Auto) >30 /lpf Urine Bacteria (Auto) NEG White Blood Count 12.54 K/uL 10.12 K/uL Red Blood Count 4.60 M/uL 4.00 M/uL Hemoglobin 13.4 g/dL 11.3 g/dL Hematocrit 39.0 % 34.2 % Mean Corpuscular Volume 84.8 fL 85.5 fL Mean Corpuscular Hemoglobin 29.1 pg 28.3 pg Mean Corpuscular Hemoglobin Concent 34.4 g/dl 33.0 g/dl Platelet Count 304 K/uL 249 K/uL Mean Platelet Volume 10.5 fL 10.6 fL Neutrophils (%) (Auto) 80.3 % 62.9 % Lymphocytes (%) (Auto) 9.9 % 24.5 % Monocytes (%) (Auto) 4.5 % 5.4 % Eosinophils (%) (Auto) 4.9 % 6.7 % Basophils (%) (Auto) 0.2 % 0.3 % Neutrophils # (Auto) 10.06 K/uL 6.36 K/uL Lymphocytes # (Auto) 1.24 K/uL 2.48 K/uL Monocytes # (Auto) 0.57 K/uL 0.55 K/uL Eosinophils # (Auto) 0.61 K/uL 0.68 K/uL Basophils # (Auto) 0.03 K/uL 0.03 K/uL RDW Standard Deviation 41.0 fL 41.7 fL RDW Coefficient of Variation 13.3 % 13.3 % Immature Granulocyte % (Auto) 0.2 % 0.2 % Immature Granulocyte # (Auto) 0.03 K/uL 0.02 K/uL Sodium Level 142 mmol/L 146 mmol/L Potassium Level 3.9 mmol/L 3.3 mmol/L Chloride Level 109 mmol/L 114 mmol/L Carbon Dioxide Level 22 mmol/L 24 mmol/L Anion Gap 11.0 mmol/L 8.0 mmol/L Blood Urea Nitrogen 7 mg/dl 5 mg/dl Creatinine 0.66 mg/dl 0.62 mg/dl Est Creatinine Clear Calc Drug Dose 164.6 ml/min 175.0 ml/min Estimated GFR () 139.3 142.2 Estimated GFR (Non- 120.2 122.7 BUN/Creatinine Ratio 11.2 7.6 Random Glucose 105 mg/dl 86 mg/dl Calcium Level 8.6 mg/dl 7.8 mg/dl Total Bilirubin 0.1 mg/dl 0.2 mg/dl Aspartate Amino Transf (AST/SGOT) 10 U/L 7 U/L Alanine Aminotransferase (ALT/SGPT) 14 U/L 15 U/L Alkaline Phosphatase 59 U/L 50 U/L Total Protein 6.9 gm/dl 5.7 gm/dl Albumin 3.4 gm/dl 2.8 gm/dl Globulin 3.5 gm/dl Albumin/Globulin Ratio 1.0 Triglycerides Level 106 mg/dl Cholesterol Level 188 mg/dl HDL Cholesterol 61 mg/dl LDL Cholesterol, Calculated 106 mg/dl VLDL Cholesterol, Calculated 21 mg/dl Cholesterol/HDL Ratio 3.1 Lipase 6334 U/L 150 U/L Magnesium Level 1.8 mg/dl Direct Bilirubin < 0.1 mg/dl Assessment and Plan 26 yo female initially thought to have acute pancreatitis, however lipase quickly normalized, pain still persists elevated lipase quickly normalized, normal pancreas on CT on 10/05 and normal on abdominal US 10/08 normal LFT, supportive care and pain control, will consider gastroenteritis, negative c diff, awaiting cultures, will follow with supportive care Hypothyroidism, clinically stable, continue amour thyroid
[2016-10-09 08:49] VITALS: BP 125/75; PULSE 86; TEMP 36.8; O2SAT 96
[2016-10-09 12:19] LABS: PREG INTERNAL NEGATIVE QC NEG CLEAR BACKGROUND; PREG INTERNAL POSITIVE QC POS CONTROL LINE
[2016-10-09] MEDS: SODIUM CHLOR 0.45% + 20MEQ KCL 1,000 ML IV SCH ×2 (12:23→18:46)
--- NOTE | 2016-10-09 14:55 | Medical Student: [facility] ---
Med Student Progress Note Date of Service Oct 09, 2016. Subjective Pt evaluation today including: conversation w/ patient, physical exam, chart review, lab review, review of studies Pain: moderate post-prandial abdominal pain and bloating PO Intake: did not tolerate thick liquids well, had done well with clear liquids Voiding: no voiding problems no acute events overnight. patient reports decreased frequency and intensity of abdominal pain and nausea since being in the hospital. however, she is still having loose stools with her most recent one this afternoon following lunch. she reports post-prandial pain, bloating, and nausea. she does not express a need for anti-emetics to control nausea. no other symptoms to report. Review of Systems Constitutional: No chills, No fever Respiratory: No cough, No shortness of breath Cardiac: No chest pain, No edema Abdomen: + diarrhea, + nausea, + pain, + vomiting Female : No dysuria, No urinary frequency Objective Vital Signs Date Time Temp Pulse Resp B/P Pulse Ox O2 Delivery O2 Flow Rate FiO2 10/09/16 08:49 36.8 86 20 125/75 96 10/09/16 08:00 Room Air 10/09/16 00:00 Room Air 10/08/16 23:55 36.9 80 18 118/72 100 Room Air 10/08/16 20:16 36.9 68 16 110/70 98 Room Air 10/08/16 20:00 Room Air 10/08/16 16:04 66 12 114/70 99 10/08/16 14:48 70 18 116/74 100 Room Air Physical Exam General Appearance: WD/WN, no apparent distress Eyes: bilateral eyes EOMI, bilateral eyes PERRL, bilateral eyes normal inspection ENT: hearing grossly normal, pharynx normal Neck: supple, no JVD Respiratory/Chest: chest non-tender, lungs clear, normal breath sounds Cardiovascular: regular rate, rhythm, no edema, no gallop, no JVD, no murmur Abdomen: normal bowel sounds, soft, no organomegaly, + tenderness (in periumbilical and suprapubic areas to deep palpation) Extremities: non-tender, no pedal edema Neurologic/Psychiatric: alert, normal mood/affect, oriented x 3 Skin: normal color, warm/dry, no rash Laboratory Results Last 24 Hours Test 10/09/16 06:15 10/09/16 11:55 10/09/16 13:57 White Blood Count 10.12 K/uL Red Blood Count 4.00 M/uL Hemoglobin 11.3 g/dL Hematocrit 34.2 % Mean Corpuscular Volume 85.5 fL Mean Corpuscular Hemoglobin 28.3 pg Mean Corpuscular Hemoglobin Concent 33.0 g/dl Platelet Count 249 K/uL Mean Platelet Volume 10.6 fL Neutrophils (%) (Auto) 62.9 % Lymphocytes (%) (Auto) 24.5 % Monocytes (%) (Auto) 5.4 % Eosinophils (%) (Auto) 6.7 % Basophils (%) (Auto) 0.3 % Neutrophils # (Auto) 6.36 K/uL Lymphocytes # (Auto) 2.48 K/uL Monocytes # (Auto) 0.55 K/uL Eosinophils # (Auto) 0.68 K/uL Basophils # (Auto) 0.03 K/uL RDW Standard Deviation 41.7 fL RDW Coefficient of Variation 13.3 % Immature Granulocyte % (Auto) 0.2 % Immature Granulocyte # (Auto) 0.02 K/uL Sodium Level 146 mmol/L Potassium Level 3.3 mmol/L Chloride Level 114 mmol/L Carbon Dioxide Level 24 mmol/L Anion Gap 8.0 mmol/L Blood Urea Nitrogen 5 mg/dl Creatinine 0.62 mg/dl Est Creatinine Clear Calc Drug Dose 175.0 ml/min Estimated GFR () 142.2 Estimated GFR (Non- 122.7 BUN/Creatinine Ratio 7.6 Random Glucose 86 mg/dl Calcium Level 7.8 mg/dl Magnesium Level 1.8 mg/dl Total Bilirubin 0.2 mg/dl Direct Bilirubin < 0.1 mg/dl Aspartate Amino Transf (AST/SGOT) 7 U/L Alanine Aminotransferase (ALT/SGPT) 15 U/L Alkaline Phosphatase 50 U/L Total Protein 5.7 gm/dl Albumin 2.8 gm/dl Lipase 150 U/L Urine Test NEG Medications Current Inpatient Medications Medications (Trade) Dose Ordered Sig/Franck Route Start Time Stop Time Status Last Admin Dose Admin Acetaminophen (Tylenol Tab) 650 mg Q4H PRN PO 10/08/16 15:15 11/07/16 15:14 Ondansetron HCl (Zofran Inj) 4 mg Q6H PRN IV 10/08/16 15:15 11/07/16 15:14 Ketorolac Tromethamine (Toradol Inj) 30 mg Q6H PRN IV 10/08/16 15:15 10/13/16 15:14 Thyroid 45 mg 45 mg DAILYBB PO 10/09/16 06:30 11/08/16 06:59 10/09/16 06:32 45 MG Potassium Chloride/Sodium Chloride (1/2 Nss + 20meq KCl 1000ml) 1,000 ml @ 150 mls/hr Q6H40M IV 10/09/16 12:00 11/08/16 11:59 10/09/16 12:23 150 MLS/HR Assessment and Plan Assessment and Plan: This is a 26 yo woman with a hx of hypothyroidism who presents with abdominal pain, nausea, vomiting, and diarrhea of 5 days duration. GI distress - suspected pancreatitis given elevated lipase yesterday (>6000). However, levels today or yesterday may be erroneous given result of 150. Repeat labs today show 126. First lab was likely in error. - given post-prandial bloating and pain, may represent gastritis or PUD - did not tolerate advancement of diet to thick liquids, will revert to clear liquids for the time being and attempt diet advancement tomorrow. - consider initiation of H2 matias or PPI for diagnostic/symptomatic trial. - continue IV hydration Electrolyte abnormalities - Hypernatremia/hypokalemia/hyperchloremia noted on BMP this morning - Probably due to volume contraction and GI losses - Changed IV fluids from normal saline to 1/2 saline plus 20 mEq K - check BMP tomorrow Continued [facility] stay due to: inadequate po fluid intake Discharge planning: home
[2016-10-09 15:46] VITALS: BP 120/79; PULSE 61; TEMP 36.8; O2SAT 98
[2016-10-09 23:14] VITALS: BP 118/77; PULSE 65; TEMP 36.8; O2SAT 98
[2016-10-10] MEDS: SODIUM CHLOR 0.45% + 20MEQ KCL 1,000 ML IV SCH ×4 (01:03→20:07)
[2016-10-10] MEDS: ARMOUR THYROID 30 MG TAB PO SCH (05:44)
[2016-10-10 07:49] VITALS: BP 122/80; PULSE 56; TEMP 36.6; O2SAT 99
[2016-10-10 10:23] LABS: BASO % 0.3 %; BASO ABS # 0.03 K/uL (0-0.2); COMPLETE YES; EOS % 8.9 %; HEMATOCRIT 34.2 % (37-47); IG% 0.2 %; LYMPH % 21.4 %; LYMPH ABS # 2.24 K/uL (1.2-3.4); MEAN CELL VOLUME 84.9 fL (80-100); MEAN CORPUSCULAR HEMOGLOBIN 28.8 pg (25-34); MEAN CORPUSCULAR HGB CONC 33.9 g/dl (32-36); MEAN PLATELET VOLUME 10.2 fL (7.4-10.4); NEUT % 64.2 %; PLATELET COUNT 254 K/uL (130-400); RED BLOOD COUNT 4.03 M/uL (4.2-5.4); WHITE BLOOD COUNT 10.48 K/uL (4.8-10.8)
[2016-10-10 11:02] LABS: BUN/CREATININE RATIO 4.7 (10-20); CALCIUM 8.8 mg/dl (8.5-10.1); CREATININE 0.67 mg/dl (0.60-1.20); POTASSIUM 3.8 mmol/L (3.5-5.1)
[2016-10-10 11:06] LABS: ALB/GLOB RATIO 0.9 (0.9-2)
[2016-10-10] MEDS ORDERED: OPTIRAY 320 IV PRN (14:45)
[2016-10-10 14:47] VITALS: BP 122/80; PULSE 56; TEMP 36.6; O2SAT 99
--- NOTE | 2016-10-10 14:56 | Gastrointestinal Consultation ---
Gastrointestinal Consultation Date of Consultation: Oct 10, 2016 Attending Physician: Dr. Mccray Consulting Physician: Valentine Crain PA-C Reason for Consultation: Nausea, Abdominal pain, diarrhea History of Present Illness Patient is a 26 year old female who presented to the hospital on 10/05/16 for complaints of nausea, vomiting, & epigastric pain. At that time, she had a CT scan with IV contrast only performed while in the ED. It appeared unremarkable with the exception of a small amount of free pelvic fluid. She reports that she was discharged home, however she reports that she did not improve. She presented to the ER again on 10/09. She had persistent epigastric pain and nausea. An US was unremarkable. A lipase was >6000. She was kept NPO and given IV fluids. Her lipase normalized by 10/10. However since admission to the hospital she has had worsening diarrhea. She reports that this was not an issue at home. She reports that she has frequent loose stools. C diff & stool culture were unremarkable. Her WBC count was 23,000 on admission. She reports her nausea has subsided, but she is frustrated that she does not have an explanation for her symptoms. Her abdominal pain has moved from the epigastric region to the lower abdominal quadrants. She denies rectal bleeding. She denies NSAID use. She denies sick contacts or ingestion of suspicious foods. She denies fevers or chills. She denies family history of IBD or GI malignancy. She has a history of hypothyroidism, but denies a history of chronic disease otherwise. She has no appetite. 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 She reports that this seemed to be helping prior to this episode. She has been prescribed antiemetics however is presently not requesting them. Past Medical/Surgical History Medical Problems: (1) Leukocytosis Status: Acute (2) Lower abdominal pain Status: Acute (3) Vomiting and diarrhea Status: Acute Past Medical History: Hypothyroidism Past Surgical History: Denies surgical history Social History Smoking Status: Never Smoker Marital Status: single Occupation Status: employed Allergies Coded Allergies: No Known Allergies (Unverified , 10/05/16) Current Medications Home Meds and Scripts Medications Dose Route/Sig Max Daily Dose Days Date Category Raymond Thyroid (Thyroid) 15 Mg Tab 45 Mg PO DAILY 10/05/16 Reported Control Pills (Miscellaneous) Tab 1 Tab PO DAILY 10/05/16 Reported Review of Systems Constitutional: No problem reported Eyes: No problem reported Respiratory: No cough, No shortness of breath Cardiac: No chest pain Abdomen: + diarrhea, + nausea, + pain, No GI bleeding, No constipation, No vomiting Musculoskeletal: No joint pain Psych: No problem reported Skin: No problem reported Physical Exam Date Time Temp Pulse Resp B/P Pulse Ox O2 Delivery O2 Flow Rate FiO2 10/10/16 08:10 Room Air 10/10/16 07:49 36.6 56 20 122/80 99 Room Air 10/10/16 00:00 Room Air 10/09/16 23:14 36.8 65 20 118/77 98 Room Air 10/09/16 21:00 Room Air 10/09/16 16:00 Room Air 10/09/16 15:46 36.8 61 20 120/79 98 Room Air General Appearance: WD/WN, no apparent distress Eyes: normal inspection, PERRL Respiratory/Chest: lungs clear, normal breath sounds Cardiovascular: regular rate, rhythm Abdomen: normal bowel sounds, soft, + tenderness (generalized) Extremities: non-tender Neurologic/Psych: alert, oriented x 3 Skin: normal color Laboratory Results Last 24 Hours Test 10/10/16 10:14 White Blood Count 10.48 K/uL Red Blood Count 4.03 M/uL Hemoglobin 11.6 g/dL Hematocrit 34.2 % Mean Corpuscular Volume 84.9 fL Mean Corpuscular Hemoglobin 28.8 pg Mean Corpuscular Hemoglobin Concent 33.9 g/dl Platelet Count 254 K/uL Mean Platelet Volume 10.2 fL Neutrophils (%) (Auto) 64.2 % Lymphocytes (%) (Auto) 21.4 % Monocytes (%) (Auto) 5.0 % Eosinophils (%) (Auto) 8.9 % Basophils (%) (Auto) 0.3 % Neutrophils # (Auto) 6.74 K/uL Lymphocytes # (Auto) 2.24 K/uL Monocytes # (Auto) 0.52 K/uL Eosinophils # (Auto) 0.93 K/uL Basophils # (Auto) 0.03 K/uL RDW Standard Deviation 40.9 fL RDW Coefficient of Variation 13.2 % Immature Granulocyte % (Auto) 0.2 % Immature Granulocyte # (Auto) 0.02 K/uL Sodium Level 143 mmol/L Potassium Level 3.8 mmol/L Chloride Level 110 mmol/L Carbon Dioxide Level 27 mmol/L Anion Gap 6.0 mmol/L Blood Urea Nitrogen 3 mg/dl Creatinine 0.67 mg/dl Est Creatinine Clear Calc Drug Dose 161.9 ml/min Estimated GFR () 138.6 Estimated GFR (Non- 119.6 BUN/Creatinine Ratio 4.7 Random Glucose 121 mg/dl Calcium Level 8.8 mg/dl Total Bilirubin 0.2 mg/dl Aspartate Amino Transf (AST/SGOT) 7 U/L Alanine Aminotransferase (ALT/SGPT) 16 U/L Alkaline Phosphatase 57 U/L Total Protein 6.4 gm/dl Albumin 3.0 gm/dl Globulin 3.4 gm/dl Albumin/Globulin Ratio 0.9 Lipase 117 U/L Impression Patient is a 26 year old female who presents with epigastric pain, nausea, vomiting, and now is experiencing diarrhea with lower abdominal cramping. Differential includes infectious processes such as norovirus vs pancreatitis vs IBD vs other. Stool culture & C diff studies were unremarkable. Lipase elevation did resolve overnight. Plan 1) Zofran 4 mg q 6 hr prn n/v. Patient does not currently wish to utilize this for her nausea. 2) CT scan of the abdomen/pelvis with po & IV contrast for further evaluation of abdominal pain & diarrhea. 3) Okay to attempt trial of PPI therapy as well. Will begin Protonix 40 mg BID for now. 4) IV fluid hydration & supportive care per primary team. Thank you for allowing us to participate in the care of this patient. If you should have any further questions or concerns, do not hesitate to contact us. Agree with RENETTA Minor as above Abd: Soft, NT, ND, +BS Continue current therapy CT scan today
--- NOTE | 2016-10-10 15:01 | Progress Note ---
Subjective Date of Service: Oct 10, 2016. Subjective pt still is intolerant of advanced diet, minor LLQ pain, some loose bowel movements Problem List Medical Problems: (1) Leukocytosis Status: Acute (2) Lower abdominal pain Status: Acute (3) Vomiting and diarrhea Status: Acute Review of Systems Constitutional: No chills, No fever, No weakness Respiratory: No cough, No shortness of breath, No wheezing Cardiac: No chest pain, No edema Abdomen: + diarrhea, + nausea, + pain, No vomiting Female : No dysuria, No urinary frequency Objective Vital Signs Date Time Temp Pulse Resp B/P Pulse Ox O2 Delivery O2 Flow Rate FiO2 10/10/16 14:47 36.6 56 16 122/80 99 Room Air 10/10/16 08:10 Room Air 10/10/16 07:49 36.6 56 20 122/80 99 Room Air 10/10/16 00:00 Room Air 10/09/16 23:14 36.8 65 20 118/77 98 Room Air 10/09/16 21:00 Room Air 10/09/16 16:00 Room Air 10/09/16 15:46 36.8 61 20 120/79 98 Room Air Physical Exam General Appearance: WD/WN, + mild distress Neck: supple, no JVD Respiratory/Chest: chest non-tender, lungs clear, normal breath sounds Cardiovascular: regular rate, rhythm, no murmur Abdomen: normal bowel sounds, soft, + guarding, + tenderness Extremities: normal range of motion, no pedal edema, no calf tenderness Laboratory Results Last 24 Hours Test 10/10/16 10:14 White Blood Count 10.48 K/uL Red Blood Count 4.03 M/uL Hemoglobin 11.6 g/dL Hematocrit 34.2 % Mean Corpuscular Volume 84.9 fL Mean Corpuscular Hemoglobin 28.8 pg Mean Corpuscular Hemoglobin Concent 33.9 g/dl Platelet Count 254 K/uL Mean Platelet Volume 10.2 fL Neutrophils (%) (Auto) 64.2 % Lymphocytes (%) (Auto) 21.4 % Monocytes (%) (Auto) 5.0 % Eosinophils (%) (Auto) 8.9 % Basophils (%) (Auto) 0.3 % Neutrophils # (Auto) 6.74 K/uL Lymphocytes # (Auto) 2.24 K/uL Monocytes # (Auto) 0.52 K/uL Eosinophils # (Auto) 0.93 K/uL Basophils # (Auto) 0.03 K/uL RDW Standard Deviation 40.9 fL RDW Coefficient of Variation 13.2 % Immature Granulocyte % (Auto) 0.2 % Immature Granulocyte # (Auto) 0.02 K/uL Sodium Level 143 mmol/L Potassium Level 3.8 mmol/L Chloride Level 110 mmol/L Carbon Dioxide Level 27 mmol/L Anion Gap 6.0 mmol/L Blood Urea Nitrogen 3 mg/dl Creatinine 0.67 mg/dl Est Creatinine Clear Calc Drug Dose 161.9 ml/min Estimated GFR () 138.6 Estimated GFR (Non- 119.6 BUN/Creatinine Ratio 4.7 Random Glucose 121 mg/dl Calcium Level 8.8 mg/dl Total Bilirubin 0.2 mg/dl Aspartate Amino Transf (AST/SGOT) 7 U/L Alanine Aminotransferase (ALT/SGPT) 16 U/L Alkaline Phosphatase 57 U/L Total Protein 6.4 gm/dl Albumin 3.0 gm/dl Globulin 3.4 gm/dl Albumin/Globulin Ratio 0.9 Lipase 117 U/L Assessment and Plan 26 yo female initially thought to have acute pancreatitis, however lipase quickly normalized, pain still persists elevated lipase quickly normalized, normal pancreas on CT on 10/05 and normal on abdominal US 10/08 normal LFT, supportive care and pain control, will consider gastroenteritis, negative c diff, awaiting cultures, not tolerant of advanced diet, feels flushed, still pain, will have GI medicine opinion Hypothyroidism, clinically stable, continue amour thyroid Continued [facility] stay due to: inadequate po fluid intake Discharge planning: home
--- NOTE | 2016-10-10 17:12 | DIAGNOSTIC IMAGING REPORT ---
CT OF THE ABDOMEN AND PELVIS WITH CONTRAST CLINICAL HISTORY: Abdominal pain and diarrhea. Acute pancreatitis. COMPARISON STUDY: CT of the abdomen and pelvis October 05, 2016 and right upper quadrant ultrasound October 08, 2016. TECHNIQUE: Following IV administration of 116 mL of Optiray-320, axial images of the abdomen and pelvis were obtained from the lung bases to the proximal femurs. Images were reviewed in the axial, sagittal, and coronal planes. IV contrast was administered without complication. Oral contrast was administered. CT DOSE: 1044.51 mGy.cm FINDINGS: Visualized portions of the lower chest demonstrate a trace right pleural effusion. There is no pneumatosis, free air or portal venous gas. Mild gallbladder wall thickening is noted. The spleen, adrenal glands and kidneys are normal. The appearance of the pancreas is normal. There is no peripancreatic infiltration. No biliary or pancreatic ductal dilatation is present. There is focal fat within the medial segment of the left hepatic lobe. Caliber and wall thickness of small and large bowel are normal. The appendix is normal. There is a small amount of fluid within the pelvis. Skeletal structures are unremarkable. IMPRESSION: 1. Normal CT appearance of the pancreas. 2. Mild gallbladder wall thickening, a nonspecific finding. 3. Trace right pleural effusion. 4. Small amount of fluid within the pelvis. 5. Normal appendix. No evidence for a bowel obstruction. No bowel wall thickening. Electronically signed by: Frank Matta M.D. 10/10/2016 5:10 PM Dictated Date/Time: 10/10/2016 5:00 PM
[2016-10-10] MEDS: PANTOprazole INJ 40 MG in SYRINGE 0 ML IV SCH (20:07)
[2016-10-10 23:22] VITALS: BP 136/76; PULSE 67; TEMP 36.8; O2SAT 100
[2016-10-11] MEDS: SODIUM CHLOR 0.45% + 20MEQ KCL 1,000 ML IV SCH ×2 (04:00→10:50)
[2016-10-11] MEDS: ARMOUR THYROID 30 MG TAB PO SCH (05:54)
[2016-10-11 07:25] VITALS: BP 123/83; PULSE 60; TEMP 36.6; O2SAT 97
[2016-10-11] MEDS: PANTOprazole INJ 40 MG in SYRINGE 0 ML IV SCH (08:09)
[2016-10-11] MEDS ORDERED: ONDA4TAB65 PO (10:13)
--- NOTE | 2016-10-11 10:15 | Discharge Instructions ---
Discharge Instructions Admission Reason for Admission: Acute Pancreatitis Discharge Discharge Diagnosis / Problem: gastroenteritis Discharge Goals Goal(s): Diagnostic testing, Therapeutic intervention Activity Recommendations Activity Limitations: resume your previous activity . Current Hospital Diet Patient's current hospital diet: Regular Diet Discharge Diet Recommended Diet: Regular Diet Pending Studies Studies pending at discharge: no Laboratory Results Lipid Panel Test 10/08/16 13:35 Range/Units Triglycerides Level 106 0-150 mg/dl Cholesterol Level 188 0-200 mg/dl HDL Cholesterol 61 mg/dl Cholesterol/HDL Ratio 3.1 LDL Cholesterol, Calculated 106 mg/dl Medical Emergencies . Who to Call and When: Medical Emergencies: If at any time you feel your situation is an emergency, please call 911 immediately. . Non-Emergent Contact Non-Emergency issues call your: Primary Care Provider Call Non-Emergent contact if: temperature is above 101 . . "Provider Documentation" section prepared by Shawn Mccray. VTE Core Measure Inpt VTE Proph given/why not?: Treatment not indicated
--- NOTE | 2016-10-11 10:31 | Gastroenterology Progress Note ---
Progress Note Date of Service: Oct 11, 2016 Subjective Pt evaluation today including: conversation w/ patient, physical exam, lab review, review of studies Patient is a 26 yo female who is hospitalized for nausea, vomiting, diarrhea, and abdominal pain. She underwent a CT scan on 10/10/16 that did not indicate any abnormalities of the small bowel, colon, or pancreas. There was questionable mild gallbladder wall thickening that was not noted on the previous RUQ ultrasound. The patient reports she is feeling much better today. She reports she has not had further diarrhea. She reports improvement of nausea & vomiting. Her abdominal pain has subsided. She was able to eat breakfast this morning and has tolerated it thus far. She offers no further complaints. Review of Systems Constitutional: No problem reported Respiratory: No cough, No dyspnea on exertion, No shortness of breath Cardiac: No chest pain Abdomen: No GI bleeding, No constipation, No diarrhea, No nausea, No pain, No vomiting Musculoskeletal: No joint pain Skin: No problem reported Medications Current Inpatient Medications Medications (Trade) Dose Ordered Sig/Franck Route Start Time Stop Time Status Last Admin Dose Admin Acetaminophen (Tylenol Tab) 650 mg Q4H PRN PO 10/08/16 15:15 11/07/16 15:14 10/10/16 14:44 650 MG Ondansetron HCl (Zofran Inj) 4 mg Q6H PRN IV 10/08/16 15:15 11/07/16 15:14 Ketorolac Tromethamine (Toradol Inj) 30 mg Q6H PRN IV 10/08/16 15:15 10/13/16 15:14 10/10/16 20:09 30 MG Thyroid 45 mg 45 mg DAILYBB PO 10/09/16 06:30 11/08/16 06:59 10/11/16 05:54 45 MG Potassium Chloride/Sodium Chloride 1,000 ml @ 150 mls/hr Q6H40M IV 10/09/16 12:00 11/08/16 11:59 10/11/16 04:00 150 MLS/HR Pantoprazole Sodium/Syringe (Protonix Inj/ Syringe) 10 ml @ 5 mls/min DAILY@09,21 IV 10/10/16 21:00 11/09/16 20:59 10/11/16 08:09 5 MLS/MIN Ioversol (Optiray 320) 125 ml UD PRN IV 10/10/16 14:45 10/14/16 14:44 Objective Vital Signs Date Time Temp Pulse Resp B/P Pulse Ox O2 Delivery O2 Flow Rate FiO2 10/11/16 08:22 Room Air 10/11/16 07:25 36.6 60 16 123/83 97 Room Air 10/11/16 00:00 Room Air 10/10/16 23:22 36.8 67 18 136/76 100 BiPAP 10/10/16 20:00 Room Air 10/10/16 15:57 Room Air 10/10/16 14:47 36.6 56 16 122/80 99 Room Air Physical Exam General Appearance: WD/WN, no apparent distress Eyes: normal inspection, PERRL ENT: hearing grossly normal Respiratory/Chest: lungs clear, normal breath sounds Cardiovascular: regular rate, rhythm Abdomen: normal bowel sounds, non tender, soft Extremities: non-tender Neurologic/Psych: alert, oriented x 3 Skin: normal color Laboratory Results Last 24 Hours Test 10/10/16 10:14 White Blood Count 10.48 K/uL Red Blood Count 4.03 M/uL Hemoglobin 11.6 g/dL Hematocrit 34.2 % Mean Corpuscular Volume 84.9 fL Mean Corpuscular Hemoglobin 28.8 pg Mean Corpuscular Hemoglobin Concent 33.9 g/dl Platelet Count 254 K/uL Mean Platelet Volume 10.2 fL Neutrophils (%) (Auto) 64.2 % Lymphocytes (%) (Auto) 21.4 % Monocytes (%) (Auto) 5.0 % Eosinophils (%) (Auto) 8.9 % Basophils (%) (Auto) 0.3 % Neutrophils # (Auto) 6.74 K/uL Lymphocytes # (Auto) 2.24 K/uL Monocytes # (Auto) 0.52 K/uL Eosinophils # (Auto) 0.93 K/uL Basophils # (Auto) 0.03 K/uL RDW Standard Deviation 40.9 fL RDW Coefficient of Variation 13.2 % Immature Granulocyte % (Auto) 0.2 % Immature Granulocyte # (Auto) 0.02 K/uL Sodium Level 143 mmol/L Potassium Level 3.8 mmol/L Chloride Level 110 mmol/L Carbon Dioxide Level 27 mmol/L Anion Gap 6.0 mmol/L Blood Urea Nitrogen 3 mg/dl Creatinine 0.67 mg/dl Est Creatinine Clear Calc Drug Dose 161.9 ml/min Estimated GFR () 138.6 Estimated GFR (Non- 119.6 BUN/Creatinine Ratio 4.7 Random Glucose 121 mg/dl Calcium Level 8.8 mg/dl Total Bilirubin 0.2 mg/dl Aspartate Amino Transf (AST/SGOT) 7 U/L Alanine Aminotransferase (ALT/SGPT) 16 U/L Alkaline Phosphatase 57 U/L Total Protein 6.4 gm/dl Albumin 3.0 gm/dl Globulin 3.4 gm/dl Albumin/Globulin Ratio 0.9 Lipase 117 U/L Assessment and Plan Patient is a 26 yo female hospitalized due to nausea, vomiting, abdominal pain, & diarrhea. Her symptoms have improved this morning. She was able to tolerate breakfast. Given resolution of the patient's symptoms, suspect a viral gastroenteritis. However given questionably abnormal gallbladder findings on CT that were not apparent on a RUQ US, if patient's symptoms were to worsen as an outpatient could consider HIDA scan. Okay to continue to advance diet as tolerated. Okay to continue PPI therapy for now. Thank you for allowing us to participate in the care of this patient. If you should have further questions or concerns, do not hesitate to contact us. Agree with RENETTA Minor as above Abd: Soft, NT, ND, +BS Feeling much better today Continue current therapy Followup in our office if symptoms recur
[2016-10-11 14:55] VITALS: BP 140/75; PULSE 62; TEMP 36.8; O2SAT 99
[2016-10-11 14:59] VITALS: BP 140/75; PULSE 62; TEMP 36.8; O2SAT 99
--- NOTE | 2016-10-11 16:15 | Discharge Summary ---
Discharge Summary Admission Date: Oct 08, 2016 at 15:08 Discharge Date: Oct 11, 2016 Discharge Disposition: Home Principal Diagnosis: gastroenteritis Medication Reconciliation New Medications: Ondansetron Hcl (Zofran) 4 Mg Tab 4 MG PO Q8 PRN for Nausea, #20 TAB Continued Medications: Control Pills ( Control Pills) Tab 1 TAB PO DAILY, TAB Thyroid ([place] Thyroid) 15 Mg Tab 45 MG PO DAILY Discharge Exam Review of Systems: Constitutional: No chills, No fever Respiratory: No cough, No dyspnea on exertion, No shortness of breath, No sputum Cardiovascular: No chest pain, No edema, No orthopnea Abdomen: No constipation, No diarrhea, No nausea, No pain Genitourinary - Female: No dysuria, No urinary frequency Psychiatric: No anhedonism, No depression symptoms Hospital Course 26 yo female initially thought to have acute pancreatitis, however lipase quickly normalized, pain resolved, tolerated diet and looks improved elevated lipase quickly normalized, normal pancreas on CT on 10/05 10/10, and normal on abdominal US 10/08 normal LFT, negative c diff, negative cultures, Hypothyroidism, clinically stable, continue amour thyroid Total Time Spent: Greater than 30 minutes This includes examination of the patient, discharge planning, medication reconciliation, and communication with other providers. Discharge Instructions Please refer to the electronic Patient Visit Report (Discharge Instructions) for additional information.
== END 2016-10-11 16:20 | disposition home or self-care (01) | DRG 392 ==
LOC: ENRESERVTM → ENRESERVDT → C.EDB 12:50 → C.MS2W 15:08
PROVIDERS: ADMIT Internal Medicine; ATTEND Internal Medicine
DX: A08.4 Viral intestinal infection, unspecified (principal); R74.8 Abnormal levels of other serum enzymes; E03.9 Hypothyroidism, unspecified; Z79.3 Long term (current) use of hormonal contraceptives; Z79.899 Other long term (current) drug therapy

== ENCOUNTER → 2016-12-03 | Outpatient (CLI) | payer OTHER ==
[~2016-12-03] MED LIST changes: +BCPILLS PO; -NATURAL SUPPLEMENTS PO; +THYR15TA PO
[2016-12-03 12:38] LABS: THYROID STIMULATING HORMONE 2.12 uIu/ml (0.300-4.500)
== END | disposition home or self-care (01) ==
LOC: C.LAB 10:48
PROVIDERS: ATTEND Family Medicine
DX: E03.9 Hypothyroidism, unspecified (principal)

== ENCOUNTER → 2017-09-06 | Outpatient (CLI) | payer OTHER | END | disposition home or self-care (01) | LOC: C.PAPS 12:08 | PROVIDERS: ATTEND Obstetrics & Gynecology | DX: Z12.4 Encounter for screening for malignant neoplasm of cervix (principal) ==